=== PATIENT | female | born 1945 | race American Indian/Alaskan Native ===

== ENCOUNTER 2017-02-15 06:29 | Day surgery (SDC) | payer MEDICARE ==
[2017-02-15 07:03] VITALS: BMI 25.4
[2017-02-15] MEDS ORDERED: Lactated Ringer's 500 ML IV SCH (07:45)
[2017-02-15] MEDS ORDERED: Lidocaine Hydrochloride 5 ML INJ ONE (08:25)
[2017-02-15] MEDS ORDERED: Propofol 10 mg/ml Inj (20 ML) ONE ×2 (08:25)
--- NOTE | 2017-02-15 08:43 | CP.SDSHP ---
Same Day Surgery H & P - History Proposed Procedure: colonoscopy Pre-Op Diagnosis: h/o colon polyps/screening (last exam >10 years ago) - Previous Medical/Surgical History Cardiac: Hypertension, ASHD/CAD, Other (hyperlipidemia, ) Neuro: TIA/CVA Misc: Other (scleroderma, osteoporosis) - Allergies Allergies: Allergies No Known Allergies Allergy (Unverified 06/23/13 10:48) - Physical Exam Vital Signs: Vital Signs 02/15/17 07:15 Temperature 98.5 F Pulse Rate 89 Respiratory 17 Rate Blood Pressure 142/81 O2 Sat by Pulse 99 Oximetry Mental Status: Alert & Oriented x3 Neuro: WNL Heart: WNL Lungs: WNL GI: WNL - {Optional Preform as Required} ENT: Other (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 screening for colon cancer (>10 years) Pt. Evaluated Today:Candidate for Anesthesia & Procedure: Yes - Date & Time Date: 02/15/17 Time: 08:44 Short Stay Discharge - Short Stay Discharge Admitting Diagnosis/Reason for Visit: CHANGE IN BOWEL HABIT,CONSTIPATION Disposition: HOME/ ROUTINE
[2017-02-15 09:32] VITALS: TEMP 98.7
[2017-02-15 10:14] VITALS: O2SAT 100
[2017-02-15 10:17] VITALS: BP 136/64; PULSE 76; RESP 12
== END 2017-02-15 10:15 | disposition home or self-care (01) ==
LOC: C.ENDO 06:29
PROVIDERS: ATTEND Internal Medicine Gastroenterology
DX: K57.90 Diverticulosis of intestine, part unspecified, without perforation or abscess without bleeding (principal); K59.00 Constipation, unspecified; K63.5 Polyp of colon
CPT/HCPCS: 45388; 88305; J2704; J7120